=== PATIENT | male | born 1945 | race Caucasian/White ===

== ENCOUNTER 2020-01-13 16:35 | Emergency (ER) | payer MEDICARE ==
[~2020-01-13] VITALS: Ht 175.3 cm; Wt 69.0 kg
--- NOTE | 2020-01-13 17:54 | NUR ---
Remains asymptomatic while at rest vss on potline monitor Provider t bedside to update on estimated poc [id number]
--- NOTE | 2020-01-13 18:03 | NUR ---
PROVIDED WITH WATER LAB AT BEDSIDE
[2020-01-13 18:26] LABS: ALBUMIN 3.7 g/dL (3.4-5.0); ANION GAP 14 mmol/L (5-15); CALCIUM 8.6 mg/dL (8.5-10.1); CHLORIDE 94 mmol/L (98-107)
[2020-01-13 18:31] LABS: CREATININE 1.04 mg/dL (0.7-1.3); TROPONIN I < 0.015 ng/mL (0.000-0.045)
[2020-01-13 18:38] LABS: BASOPHILS # (AUTO) 0.01 x10^3/uL (0-0.1); BASOPHILS % (AUTO) 0 % (0-1); EOSINOPHILS # (AUTO) 0.01 x10^3/uL (0-0.4); EOSINOPHILS % (AUTO) 0 % (1-7); LYMPHOCYTES # (AUTO) 0.79 x10^3/uL (1-3.4); LYMPHOCYTES % (AUTO) 15 % (22-44); MD NO; MEAN CORPUSCULAR HEMOGLOBIN 31.9 pg (27.5-34.5); MEAN CORPUSCULAR HGB CONC 33.7 g/dL (33.2-36.2); MEAN CORPUSCULAR VOLUME 94.7 fL (81-97); MEAN PLATELET VOLUME 8.3 fL (7.4-10.4); MONOCYTES # (AUTO) 0.41 x10^3/uL (0.2-0.8); MONOCYTES % (AUTO) 8 % (2-9); NEUTROPHILS # (AUTO) 4.07 x10^3/uL (1.8-6.8); NEUTROPHILS % (AUTO) 77 % (42-75); PLATELET COUNT 281 x10^3/uL (130-400); RED BLOOD COUNT 4.68 x10^6/uL (4.38-5.82); RED CELL DISTRIBUTION WIDTH 12.9 % (9.4-14.8)
--- NOTE | 2020-01-13 19:11 | NUR ---
REPORT RECEIVED FROM TRUONG SMITH. PLAN OF CARE DISCUSSED.
[2020-01-13 19:13] VITALS: BP 110/62
== END 2020-01-13 20:03 | disposition home or self-care (01) ==
LOC: ED 19:45
DX: I49.1 Atrial premature depolarization (principal)
CPT/HCPCS: 36415; 71045; 80048; 82040; 82962; 84484; 85025; 93005; 99285

== ENCOUNTER 2020-07-25 14:48 | Emergency (ER) | payer MEDICARE ==
[~2020-07-25] VITALS: Ht 175.3 cm; Wt 66.4 kg
[2020-07-25] MEDS ORDERED: SODIUM CHLORIDE FLUSH 10ML SYR IVF ONE (15:30)
--- NOTE | 2020-07-25 15:58 | NUR ---
PT ON ALL ROOM MONITORING, IV PLACED/LABS DRAWN WITH START. PT UPDATED ON POC. URINAL AND CALL LIGHT WITHIN REACH.
[2020-07-25 16:18] LABS: BASOPHILS # (AUTO) 0.02 x10^3/uL (0-0.1); BASOPHILS % (AUTO) 0 % (0-1); EOSINOPHILS # (AUTO) 0.03 x10^3/uL (0-0.4); EOSINOPHILS % (AUTO) 1 % (1-7); LYMPHOCYTES # (AUTO) 1.31 x10^3/uL (1-3.4); LYMPHOCYTES % (AUTO) 25 % (22-44); MD NO; MEAN CORPUSCULAR HEMOGLOBIN 31.6 pg (27.5-34.5); MEAN CORPUSCULAR HGB CONC 33.1 g/dL (33.2-36.2); MEAN CORPUSCULAR VOLUME 95.7 fL (81-97); MEAN PLATELET VOLUME 8.3 fL (7.4-10.4); MONOCYTES # (AUTO) 0.47 x10^3/uL (0.2-0.8); MONOCYTES % (AUTO) 9 % (2-9); NEUTROPHILS # (AUTO) 3.39 x10^3/uL (1.8-6.8); NEUTROPHILS % (AUTO) 65 % (42-75); PLATELET COUNT 219 x10^3/uL (130-400); RED BLOOD COUNT 4.17 x10^6/uL (4.38-5.82); RED CELL DISTRIBUTION WIDTH 13.9 % (9.4-14.8)
[2020-07-25 16:26] LABS: ALANINE AMINOTRANSFERASE 35 U/L (12-78); ALBUMIN 3.7 g/dL (3.4-5.0); ANION GAP 14 mmol/L (5-15); CALCIUM 8.9 mg/dL (8.5-10.1); CHLORIDE 105 mmol/L (98-107); CREATININE 1.19 mg/dL (0.7-1.3)
[2020-07-25 16:29] LABS: ALKALINE PHOSPHATASE 46 U/L (45-117); TOTAL PROTEIN 6.8 g/dL (6.4-8.2)
--- NOTE | 2020-07-25 16:48 | NUR ---
PT BACK FROM CT, VSS/UPDATED IN COMPUTER.
[2020-07-25] MEDS ORDERED: OMNIPAQUE 350 MG/ML, 100ML BOTTLE ONE (16:49)
--- NOTE | 2020-07-25 17:04 | NUR ---
CT RESULT BACK, PT FOR RECHECK
--- NOTE | 2020-07-25 17:51 | NUR ---
PT AMBULATED TO BR WITHOUT DIFFICULTY. Addendum: 07/25/20 at 1751 by TAMIKO REPORT MULUGETA FROM NICANOR GUERIN.
[2020-07-25 18:01] VITALS: BP 139/70
--- NOTE | 2020-07-25 18:05 | NUR ---
D/C INSTRUCTIONS, MEDS & F/U APPT RV'WD WITH PT, HE VERBALIZES UNDERSTANDING. RX GIVEN X2. COPY OF CT SCAN GIVEN TO PT BY ERP. PT AMBULATED OUT OF ED WITHOUT DIFFICULTY, STATES HE WILL DRIVE HIMSELF HOME.
== END 2020-07-25 18:06 | disposition home or self-care (01) ==
LOC: ED 16:04
DX: K52.89 Other specified noninfective gastroenteritis and colitis (principal); K59.00 Constipation, unspecified; R10.13 Epigastric pain; R94.31 Abnormal electrocardiogram [ECG] [EKG]
CPT/HCPCS: 36415; 74177; 80053; 83690; 85025; 93005; 99285; Q9967

== ENCOUNTER 2021-01-23 18:56 | Emergency (ER) | payer MEDICARE ==
[~2021-01-23] VITALS: Ht 175.3 cm; Wt 71.9 kg
--- NOTE | 2021-01-23 19:27 | NUR ---
Pt reports he had an operation 1 week ago on his left jaw "Mohs procedure"- removing basal cell carcinoma. Stitches were removed today, but pt concerned about gash at one of the sites stitches were removed- bleeding controlled, about 2cm long, unsure how deep.
[2021-01-23] MEDS ORDERED: LIDOCAINE-MPF 1%, 5ML INFIL ONE (19:30)
[2021-01-23] MEDS ORDERED: LIDOCAINE-MPF 1%, 5ML ONE (19:31)
--- NOTE | 2021-01-23 19:32 | NUR ---
Provided pt warm blanket
[2021-01-23] MEDS ORDERED: LIDOCAINE-MPF 1%, 2ML ONE (19:36)
[2021-01-23] MEDS ORDERED: NEOSPORIN OINT. PKT 1 PACKET ONE (20:04)
[2021-01-23 20:13] VITALS: BP 117/82
--- NOTE | 2021-01-23 20:14 | NUR ---
Stitches applied. Pt agrees with and understands discharge plan and instructions.
== END 2021-01-23 20:16 | disposition home or self-care (01) ==
LOC: ED 20:00
DX: S01.411A Laceration without foreign body of right cheek and temporomandibular area, initial encounter (principal); X58.XXXA Exposure to other specified factors, initial encounter; Y93.89 Activity, other specified; Y92.89 Other specified places as the place of occurrence of the external cause; Y99.8 Other external cause status
CPT/HCPCS: 12051; 99284